=== PATIENT | female | born 1950 | race Caucasian/White ===

== ENCOUNTER 2017-01-15 11:25 | Outpatient (CLI) | payer OTHER ==
--- NOTE | 2017-01-15 12:14 | DIAGNOSTIC IMAGING REPORT ---
PROCEDURE: XR LUMBAR SPINE 2 OR 3 VIEWS INDICATION: BACK PAIN TECHNIQUE: Three views. COMPARISON: None. FINDINGS: There is spondylosis with the disc space narrowing at L4-5. There is also mild narrowing at L3-4 as well. No evidence of an acute process or fracture. IMPRESSION: 1. Spondylosis with disc space narrowing at L3-4 L4-5.
== END 2017-01-15 23:00 ==
LOC: XR SRH 11:25
DX: M47.816 Spondylosis without myelopathy or radiculopathy, lumbar region (principal)